=== PATIENT | male | born 1975 | race Caucasian/White ===

== ENCOUNTER 2023-05-17 08:15 | Emergency (ER) | payer SELFPAY ==
[2023-05-17 08:22] VITALS: BP 163/103; PULSE 98; RESP 18; TEMP 37.1; O2SAT 98
[2023-05-17 08:32] VITALS: BP 156/99; PULSE 98; RESP 18; O2SAT 98
--- NOTE | 2023-05-17 08:33 | ED.URI ---
HPI - URI/Sore Throat General Chief Complaint: Upper Respiratory Infection Stated Complaint: URI Source: patient Mode of arrival: ambulatory Limitations: no limitations History of Present Illness HPI Narrative: 48-year-old male, smoker presents to the ER with 2 day history of -- sore throat. odynophagia -- chills without any fever -- Body ache no cough or shortness of breath. MD elicited complaint: sore throat Onset (ago): day(s) ( started 2 days ago.) Consistency: constant Severity: severe Able to tolerate fluids by mouth: Yes Exacerbating factors: swallowing Relieving factors: nothing Associated symptoms: chills, myalgias and sore throat Treatments prior to arrival: none Related Data Allergies Allergy/AdvReac Type Severity Reaction Status Date / Time No Known Allergies Allergy Verified 05/17/23 09:29 Review of Systems Review of Systems: All systems reviewed & are unremarkable except as noted in HPI and below Constitutional: Constitutional: Reports as per HPI, Reports no additional constitutional complaints and Reports chills Eyes: Eyes: Reports as per HPI and Reports no additional eye complaints ENT: Reports system reviewed and no additional complaints, except as documented and Reports sore throat Cardiovascular: Cardiovascular: Reports as per HPI Respiratory: Respiratory: Reports as per HPI and Reports no additional respiratory complaints Gastrointestinal: Gastrointestinal: Reports as per HPI Genitourinary: Genitourinary: Reports no additional male genitourinary complaints Musculoskeletal: Musculoskeletal: Reports no additional musculoskeletal complaints and Reports myalgias Integumentary/Breasts: Skin/Breast: Reports system reviewed and no additional complaints, except as docu and Reports as per HPI Neurologic: Reports system reviewed and no additional complaints, except as documented and Reports as per HPI Psychiatric: Psychiatric: Reports no additional psychiatric complaints and Reports as per HPI Endocrine: Endocrine: Reports no additional endocrine complaints and Reports as per HPI Hematologic/Lymphatic: Hematologic/Lymphatic: Reports no additional hematologic/lymphatic complaints and Reports as per HPI Allergic/Immunologic: Allergic/Immunologic: Reports no additional allergic/immunologic complaints and Reports as per HPI PMFSH Social History Social History (Updated 05/17/23 @ 08:42 by Nish Rodarte MD) Social History: Smoker Exam Const: General: no acute distress Nutritional Appearance: well nourished Orientation/consciousness: patient oriented x3 Limitations: no limitations HENMT: Head: normal to inspection Ears: external ears normal Face/Nose/Sinus: Normal external nose present Face and sinus: normal facial exam Mouth: Yes Normal oral and palatal mucosa present and Yes moist mucous membranes Throat: posterior oropharynx normal ( pharyngeal erythema) Eyes: Conjunctivae: conjunctivae normal Pupils: Equal, round and reactive pupils present EOM: EOMs intact bilaterally Direct Ophthalmoscopy: no photophobia Neck: Neck: normal visual inspection and no meningeal signs Other: tender upper cervical lymphadenopathy. Chest: Chest palpation & inspection: normal inspection of the chest Resp: Effort & Inspection: normal respiratory effort Auscultation: clear to auscultation bilaterally Cardio: Rate: regular rate Rhythm: regular rhythm GI: GI Palp: Yes Soft to palpation Auscultation: normal bowel sounds : General: Yes no CVA tenderness Back/Spine/Pelvis: Back: no CVA tenderness Skin: General skin exam: normal color Rashes: no rashes Wounds: no wounds Neuro: General: patient oriented x3, moves all extremities, no meningeal signs, no focal motor deficits and CN's II-XI intact bilaterally Cranial nerves: Yes Nystagmus not present Speech: normal speech Gait exam (Neuro): Normal gait present Extrem: General: normal to inspection and no clubbing, cyanosis or e
[2023-05-17 08:56] LABS: Strep Group A RT-PCR Not Detected (Negative)
[2023-05-17 09:02] LABS: Influenza A QL RT-PCR Negative (Negative); Influenza B QL RT-PCR Negative (Negative); SARS-CoV-2 RNA PCR Negative (Negative)
[2023-05-17 09:03] LABS: RSV RNA, RT-PCR Negative (Negative)
[2023-05-17 09:14] LABS: Basophils Absolute Auto 0.08 K/mm3 (0.00-0.10); Basophils Percent Auto 0.5 % (0.0-1.0); Eosinophils Absolute Auto 0.19 K/mm3 (0.02-0.50); Eosinophils Percent Auto 1.1 % (1.0-6.0); Hematocrit 46.2 % (40.0-54.0); Hemoglobin 16.1 g/dL (14.0-18.0); Immature Granulocyte Absolute 0.14 K/mm3 (0.00-0.00); Immature Granulocyte Percent A 0.8 % (0.0-0.0); Lymphocytes Absolute Auto 1.21 K/mm3 (1.10-4.50); Mean Corpuscular HGB Conc 34.8 g/dL (32.0-36.0); Mean Corpuscular Volume 94.7 fL (78.0-102.0); Mean Platelet Volume 9.1 fl (8.7-11.0); Monocytes Absolute Auto 1.52 K/mm3 (0.10-0.90); Monocytes Percent Auto 8.8 % (2.0-11.0); Neutrophils Absolute Auto 14.1 K/mm3 (1.7-7.2); Neutrophils Percent Auto 81.8 % (50.0-70.0); Platelet Count Result 238 K/mm3 (150-420); Red Blood Count 4.88 M/mm3 (4.70-6.10); Red Cell Distribution Width 12.4 % (11.6-14.4); White Blood Count 17.3 K/mm3 (4.8-10.8)
[2023-05-17 09:27] LABS: Monoscreen Negative (Negative); Negative Monotest Control Negative (Negative); Positive Monotest Control Positive (Positive)
[2023-05-17 09:28] LABS: Alanine Aminotransferase 21 U/L (16-63); Albumin Level 3.8 g/dL (3.4-5.0); Alkaline Phosphatase 45 U/L (46-116); Anion Gap 9 mmol/L (8-16); Aspartate Amino Transferase 10 U/L (15-37); Bilirubin,Total 0.7 mg/dL (0.00-1.00); Blood Urea Nitrogen 9 mg/dL (7-18); Calcium 9.3 mg/dL (8.5-10.1); Carbon Dioxide 27 mmol/L (21-32); Chloride 104 mmol/L (98-108); Estimated CRCL calculation 96 ml/min; Estimated Glomerular Filt Rate > 60; Glucose 116 mg/dL (70-99); Osmolality Calculated 289 mOsm/kg (285-295); Potassium 3.6 mmol/L (3.5-5.1); Sodium 140 mmol/L (136-145); Total Protein 7.1 g/dL (6.4-8.2)
[2023-05-17 09:35] VITALS: BP 164/99
[2023-05-17 09:56] VITALS: TEMP 36.9
[2023-05-17 10:00] VITALS: BP 174/106
[2023-05-17] MEDS: methylPREDNISolone SOD SUCC 125 MG VIAL 40 MG IM (10:00)
== END 2023-05-17 10:05 | disposition home or self-care (01) ==
PROVIDERS: Emergency Provider Internal Medicine Critical Care Medicine
DX: J02.9 Acute pharyngitis, unspecified (principal); Z20.822 Contact with and (suspected) exposure to COVID-19
CPT/HCPCS: 36415; 80053; 85025; 86308; 87637; 87651; 96372; 99283; J2930